=== PATIENT | female | born 1970 | race Caucasian/White ===

== ENCOUNTER 2016-07-18 10:59 | Emergency (ER) | payer BC ==
[~2016-07-18] VITALS: Ht 167.6 cm; Wt 63.0 kg
[2016-07-18 11:01] VITALS: BP 115/65
== END 2016-07-18 18:28 | disposition left against medical advice (07) ==
LOC: ER 11:37
DX: Z53.21 Procedure and treatment not carried out due to patient leaving prior to being seen by health care provider (principal)